=== PATIENT | male | born 1980 | race Caucasian/White ===

== ENCOUNTER 2019-02-26 20:20 | Emergency (ER) | payer SELFPAY ==
[2019-02-26 21:22] VITALS: BP 125/90; PULSE 74; TEMP 97.5; BMI 55.3
[2019-02-26] MEDS ORDERED: levoFLOXacin 750 MG TABLET PO STA (21:50)
[2019-02-26] MEDS ORDERED: DIPHTH,PERTUSS(ACELL),TET 0.5 ML DISP.SYRIN IM ONE ×2 (21:51→22:20)
--- NOTE | 2019-02-26 22:16 | PDOC ---
Documentation entered by Goyo Garsia SCRIBE, acting as scribe for Araseli Deleon MD. Araseli Deleon MD: This documentation has been prepared by the Sun louis Xhesika, SCRIBE, under my direction and personally reviewed by me in its entirety. I confirm that the documentation accurately reflects all work, treatment, procedures, and medical decision making performed by me. History of Present Illness - General Chief Complaint: Injury Stated Complaint: STEPPED ON NAIL History Source: Patient Exam Limitations: No Limitations - History of Present Illness Initial Comments: 02/26/19 21:44 The patient is a 38 year old male, with no significant PMH, who presents to the emergency department s/p stepping on a nail. Patient notes he was walking across the street when he stepped on a nail that went through his tennis shoes and punctured his L foot. Patient denies falling or hitting head. Patient does not recall when his last tetanus was. PAST SURGICAL HISTORY: no significant history FAMILY HISTORY: no pertinent history SOCIAL HISTORY: Pt lives with family and is employed. MEDICATIONS: reviewed ALLERGIES: As per nursing notes 02/26/19 22:14 Assessment plan: This is a 38-year-old male who comes in complaining of stepped on a nail. Patient said that L went through his tennis shoe into his foot. Patient had x-ray that was negative for any foreign body. Patient started on an antipseudomonal antibiotic Levaquin and given first dose in the ED. Prescription was sent to his pharmacy and he will follow-up with his primary care doctor. Past History - Past Medical History Allergies/Adverse Reactions: Allergies Allergy/AdvReac Type Severity Reaction Status Date / Time No Known Allergies Allergy Verified 02/26/19 21:10 Home Medications: Ambulatory Orders Levofloxacin [Levaquin] 750 mg PO DAILY #5 tablet 02/26/19 Review of Systems - Review of Systems Able to Perform ROS?: Yes Comments:: 02/26/19 21:44 General: No fevers or chills, no weakness, no weight loss HEENT: No change in vision. No sore throat,. No ear pain CardioVascular: No chest pain or shortness of breath Respiratory:No cough, or wheezing. Gastrointestinal: no nausea, vomiting, diarrhea or constipation, No rectal bleeding Genitourinary: No dysuria, hematuria, or frequency Musculoskeletal: No joint or muscle pain or swelling. (+) L plantar foot puncture wound. Neurologic: No headache, vertigo, dizziness or loss of consciousness Psychiatric: nor depression Skin: No rashes or easy bruising Endocrine: no increased thirst or abnormal weight change Allergic: no skin or latex allergy All other systems reviewed and normal *Physical Exam - Vital Signs Last Vital Signs Temp Pulse Resp BP Pulse Ox 97.5 F L 74 15 125/90 100 02/26/19 21:10 02/26/19 21:10 02/26/19 21:10 02/26/19 21:10 02/26/19 21:10 - Physical Exam Comments: 02/26/19 21:45 GENERAL: The patient is awake, alert, and fully oriented, in no acute distress. HEAD: Normal with no signs of trauma. EYES: Pupils equal, round and reactive to light, extraocular movements intact, sclera anicteric, conjunctiva clear. EXTREMITIES: Normal range of motion, no edema. (+) superficial small puncture wound to L plantar surface of foot proximal to 1st and 2nd toes. Non bloody. No bony tenderness. Neurovascular intact. NEUROLOGICAL: Normal speech, normal gait. PSYCH: Normal mood, normal affect. SKIN: Warm, Dry, normal turgor, no rashes or lesions noted. ED Treatment Course - RADIOLOGY Radiology Studies Ordered: Category Date Time Status FOOT-LEFT [RAD] Stat Radiology 02/26/19 21:37 Taken *DC/Admit/Observation/Transfer Diagnosis at time of Disposition: Puncture wound of foot, left Qualifiers: Encounter type: initial encounter Qualified Code(s): S91.332A - Puncture wound without foreign body, left foot, initial encounter - Discharge Dispostion Disposition: HOME Condition at time of disposition: Good Decision to Admit order: No - Prescriptions Prescriptions: Levofloxacin [Levaquin] 750 mg PO DAILY #5 tablet - Referrals - Patient Instructions Additional Instructions: Take Levaquin 1 tablet per day for the next 5 days. To prevent infection. Tylenol or Motrin as needed for pain Return to the emergency department immediately with ANY new, persistent or worsening symptoms. Continue any medications as previously prescribed by your physician. You should follow up with your primary doctor as soon as possible regarding today's emergency department visit. . Please make sure your doctor reviews the results of your emergency evaluation. Thank you for coming to the Emergency Department today for your care. It was a pleasure to see you today. Please note that your evaluation is INCOMPLETE until you follow-up with your doctor. - Post Discharge Activity
== END 2019-02-26 22:30 | disposition home or self-care (01) ==
LOC: FER 20:20
PROC: 3E0234Z Introduction of Serum, Toxoid and Vaccine into Muscle, Percutaneous Approach (ICD-10-PCS; principal; 2019-02-26)
DX: S91.332A Puncture wound without foreign body, left foot, initial encounter (principal); W22.8XXA Striking against or struck by other objects, initial encounter; Y93.89 Activity, other specified; Y92.89 Other specified places as the place of occurrence of the external cause
CPT/HCPCS: 73630-TC-LT; 90715; 99282-25